=== PATIENT | female | born 1975 | race Two or more races ===

== ENCOUNTER 2024-10-27 15:03 | Emergency (ER) | payer MEDICAID ==
[~2024-10-27] VITALS: Ht 160 cm; Wt 78.0 kg
[2024-10-27 15:26] VITALS: BP 116/83; TEMP 98.6
[2024-10-27] MEDS ORDERED: LIDOCAINE 2%-EPI 1:100,000 30 ML VIAL ONE (15:31)
[2024-10-27] MEDS: ACETAMINOPHEN ES 500 MG TABLET PO ONE (15:55)
[2024-10-27 16:30] LABS: PREGNANCY TEST URINE QUAL NEGATIVE (NEGATIVE)
[2024-10-27 16:41] LABS: APPEARANCE,URINE CLEAR (CLEAR); BILIRUBIN,URINE NEGATIVE (NEGATIVE); BLOOD, URINE 3+ Ery/uL (NEGATIVE); COLOR,URINE YELLOW (YELLOW); KETONES,URINE NEGATIVE (NEGATIVE); LEUKOCYTE ESTERASE ,URINE NEGATIVE (NEGATIVE); NITRITE, URINE NEGATIVE (NEGATIVE); PROTEIN,URINE TRACE mg/dl (NEGATIVE); UGLUCOSE NEGATIVE (NEGATIVE); UROBILINOGEN,URINE 0.2 EU/dL (0.2)
[2024-10-27 16:53] LABS: ADD URINE CULTURE YES; BACTERIA,URINE Moderate /HPF (None Seen); RBC,URINE 21-50 /HPF (0-2); SQUAMOUS EPITHELIAL CELL,UR Moderate /HPF (None Seen); WBC,URINE 0-2 /HPF (0-3)
[2024-10-27] MEDS ORDERED: SULF1TAB48 PO (17:01)
[2024-10-27 17:21] VITALS: O2SAT 98
[2024-10-29 08:10] LABS: RAPID PLASMA REAGIN QUAL. Non Reactive (Non Reactive)
== END 2024-10-27 17:22 | disposition home or self-care (01) ==
LOC: ER 15:03
DX: N76.4 Abscess of vulva (principal); E11.9 Type 2 diabetes mellitus without complications
CPT/HCPCS: 99284; 56420; 86593; 86592; 87086; 84703; 81001; 36415; J3490; 87186-TC